=== PATIENT | female | born 1960 | race Caucasian/White ===

== ENCOUNTER 2025-03-30 16:49 | Inpatient (IN) | payer MEDICARE, OTHER ==
[~2025-03-30 16:49] MED LIST: Iopamidol-370 76% 500 ML MDV (1 ML CHARGE) ONE
[2025-03-30] MEDS ORDERED: Milk Of Magnesia 30 ML UDCUP PO PRN (18:46)
[2025-03-30] MEDS ORDERED: Mag-Al 1200 mg/1200 mg/30 ML UDCUP PO PRN (18:46)
[2025-03-30] MEDS ORDERED: Communication Order-Pharmacy FS SCH (18:46)
[2025-03-30] MEDS ORDERED: hydrALAZINE 20 MG/ML VIAL SLOW IVP PRN (18:46)
[2025-03-30] MEDS ORDERED: Bisacodyl 10 MG SUPP PR PRN (18:46)
[2025-03-30] MEDS ORDERED: niCARdipine 25 MG in Sodium Chloride 0.9% 250 ML 250 ML IVPB PRN (18:46)
[2025-03-30 18:54] LABS: Hematocrit 32.6 % (36.0-47.0); Hemoglobin 10.3 g/dL (12.0-16.0); Mean Corpuscular Hemoglobin 26.1 pg (27.0-31.0); Mean Corpuscular Volume 82.7 fL (78.0-98.0); Platelet Count 126 10x3/uL (130-400); Red Blood Cell (RBC) Count 3.94 mill/uL (4.20-5.40); Reflex for Review?? YES; White Blood Cell (WBC) Count 0.43 10x3/uL (4.8-10.8)
[2025-03-30 19:03] LABS: ALT (SGPT) 10 U/L (Less than 34); AST (SGOT) 16 U/L (11-34); Albumin 4.0 g/dL (3.1-4.5); Alkaline Phosphatase 76 U/L (40-110); Anion Gap 13 mmol/L (10-20); BUN (Urea Nitrogen) 24 mg/dL (9.8-20.1); Bilirubin, Total 1.2 mg/dL (0.3-1.2); Calc. Creatinine Clearance 0 mL/min (70-130); Calcium 9.0 mg/dL (7.8-10.44); Carbon Dioxide 23 mmol/L (23-31); Chloride 107 mmol/L (98-107); Globulin 2.6 g/dL (2.4-3.5); Glucose 107 mg/dL (80-115); Potassium 3.2 mmol/L (3.5-5.1); Sodium 140 mmol/L (136-145)
[2025-03-30 19:10] LABS: INR-International Normal Ratio 1.1; PTT 24.2 sec (22.9-36.1); Prothrombin Time 14.0 sec (12.0-14.7)
[2025-03-30 19:29] LABS: Burr Cells SLIGHT = 2-5 cells HPF (0-1); Helmet Cells SLIGHT = 2-5 cells HPF (0-1); Ovalocytes SLIGHT = 2-5 cells HPF (0-1); Platelet Adequacy Comment Platelets Decreased; Smudge Cells 5.7 %
[2025-03-30] MEDS: Magnesium 2 GM/50 ML(in water) 2 GM in Premix 1 BAG IVPB SCH (21:30)
[2025-03-30 21:45] VITALS: BMI 20.9
[2025-03-30] MEDS: Acetaminophen 325 MG TAB PO PRN (22:38)
[2025-03-30] MEDS ORDERED: Electrolyte Replacement Protocol 1 EACH FS SCH (23:03)
[2025-03-30] MEDS: Diclofenac 1% 50 GM TOPICAL GEL TP SCH (23:04)
[2025-03-30] MEDS: Mupirocin 1 GM TUBE NASAL DECOLONIZATION TP SCH (23:12)
[2025-03-31] MEDS: Famotidine/PF 20 mg/2ml Vial SLOW IVP SCH (09:16)
[2025-03-31] MEDS: Mupirocin 1 GM TUBE NASAL DECOLOIZATION TP SCH (09:16)
[2025-03-31] MEDS: Diclofenac 1% 50 GM TOPICAL GEL TP SCH (09:17)
[2025-03-31 17:19] LABS: #Basophils Less than 0.03 10x3/uL (0.0-0.2); #Eosinophils Less than 0.03 10x3/uL (0.0-0.7); #Monocytes 0.10 10x3/uL (0.11-0.59); #Neutrophils 0.21 10x3/uL (1.40-6.50); %Basophils 2.0 % (0.0-1.0); %Eosinophils 0.0 % (0.0-10.0); %Lymphocytes 37.3 % (21.0-51.0); %Monocytes 19.6 % (0.0-10.0); %Neutrophils 41.1 % (42.0-75.0); Hematocrit 31.3 % (36.0-47.0); Hemoglobin 10.1 g/dL (12.0-16.0); Mean Corpuscular Hemoglobin 26.4 pg (27.0-31.0); Mean Corpuscular Volume 81.9 fL (78.0-98.0); Platelet Count 91 10x3/uL (130-400); Red Blood Cell (RBC) Count 3.82 mill/uL (4.20-5.40); White Blood Cell (WBC) Count 0.51 10x3/uL (4.8-10.8)
[2025-03-31] MEDS: Aspirin Chewable 81 MG TAB PO SCH (17:32)
[2025-03-31 17:33] LABS: ALT (SGPT) 14 U/L (Less than 34); AST (SGOT) 15 U/L (11-34); Albumin 3.5 g/dL (3.1-4.5); Alkaline Phosphatase 66 U/L (40-110); Anion Gap 13 mmol/L (10-20); BUN (Urea Nitrogen) 20 mg/dL (9.8-20.1); Bilirubin, Total 1.0 mg/dL (0.3-1.2); Calc. Creatinine Clearance 37 mL/min (70-130); Calcium 9.1 mg/dL (7.8-10.44); Carbon Dioxide 24 mmol/L (23-31); Chloride 105 mmol/L (98-107); Globulin 3.1 g/dL (2.4-3.5); Glucose 112 mg/dL (80-115); Magnesium 2.1 mg/dL (1.6-2.6); Potassium 3.2 mmol/L (3.5-5.1); Sodium 139 mmol/L (136-145)
[2025-03-31 18:38] LABS: Ovalocytes SLIGHT = 2-5 cells HPF (0-1); Platelet Adequacy Comment Platelets Decreased; RBC Morphology Within Normal Limits; Smudge Cells 4.5 %
[2025-04-01 05:05] LABS: Anion Gap 17 mmol/L (10-20); BUN (Urea Nitrogen) 29 mg/dL (9.8-20.1); Calc. Creatinine Clearance 35 mL/min (70-130); Calcium 8.9 mg/dL (7.8-10.44); Carbon Dioxide 21 mmol/L (23-31); Cardiac Risk 2.4 (Less than 4.5); Chloride 106 mmol/L (98-107); Cholesterol 109 mg/dl (< 200 Desired); Glucose 103 mg/dL (80-115); HDL Cholesterol 46 mg/dL (>60 Neg Risk); LDL Cholesterol, Calculated 50 mg/dL; Potassium 2.9 mmol/L (3.5-5.1); Sodium 141 mmol/L (136-145); Triglycerides 66 mg/dL (Less than 150)
[2025-04-01] MEDS: Aspirin Chewable 81 MG TAB PO SCH (09:46)
[2025-04-02] MEDS: Ketorolac Tromethamine 30 MG (1 mL) VIAL IVP SCH (04:21)
[2025-04-02 04:24] LABS: Anion Gap 15 mmol/L (10-20); BUN (Urea Nitrogen) 41 mg/dL (9.8-20.1); Calc. Creatinine Clearance 30 mL/min (70-130); Calcium 9.0 mg/dL (7.8-10.44); Carbon Dioxide 18 mmol/L (23-31); Chloride 108 mmol/L (98-107); Glucose 127 mg/dL (80-115); Potassium 3.1 mmol/L (3.5-5.1); Sodium 138 mmol/L (136-145)
[2025-04-02 04:28] LABS: #Basophils Less than 0.03 10x3/uL (0.0-0.2); #Eosinophils Less than 0.03 10x3/uL (0.0-0.7); #Monocytes 0.08 10x3/uL (0.11-0.59); #Neutrophils 0.52 10x3/uL (1.40-6.50); %Basophils 2.4 % (0.0-1.0); %Eosinophils 0.0 % (0.0-10.0); %Lymphocytes 24.1 % (21.0-51.0); %Monocytes 9.6 % (0.0-10.0); %Neutrophils 62.7 % (42.0-75.0); Hematocrit 28.2 % (36.0-47.0); Hemoglobin 9.3 g/dL (12.0-16.0); Mean Corpuscular Hemoglobin 26.2 pg (27.0-31.0); Mean Corpuscular Volume 79.4 fL (78.0-98.0); Platelet Count 50 10x3/uL (130-400); Red Blood Cell (RBC) Count 3.55 mill/uL (4.20-5.40); White Blood Cell (WBC) Count 0.83 10x3/uL (4.8-10.8)
[2025-04-02] MEDS: Potassium Bicarbonate/Cit Ac 25 MEQ TAB PO SCH (05:56)
[2025-04-02 06:57] LABS: Influenza A by NAA Not Detected (NotDetected); Influenza B by NAA Not Detected (NotDetected); RSV by NAA Not Detected (NotDetected); SARS-CoV-2 NAA Rapid Test Not Detected (NotDetected)
[2025-04-02] MEDS: Pantoprazole 40 MG DR.TAB PO SCH (10:07)
[2025-04-02 12:54] LABS: Platelet Count 38 10x3/uL (130-400)
[2025-04-02 13:02] LABS: INR-International Normal Ratio 1.2; Prothrombin Time 15.8 sec (12.0-14.7)
[2025-04-02 13:03] LABS: PTT 25.5 sec (22.9-36.1)
[2025-04-02 13:06] LABS: D-Dimer Test 2.82 mcg/mL (0.27-0.43)
[2025-04-02 13:09] LABS: Fibrinogen 1030 mg/dL (253-463)
[2025-04-02 13:10] LABS: Anion Gap 13 mmol/L (10-20); BUN (Urea Nitrogen) 44 mg/dL (9.8-20.1); Calc. Creatinine Clearance 27 mL/min (70-130); Calcium 8.8 mg/dL (7.8-10.44); Carbon Dioxide 19 mmol/L (23-31); Chloride 109 mmol/L (98-107); Glucose 117 mg/dL (80-115); Magnesium 1.9 mg/dL (1.6-2.6); Potassium 3.6 mmol/L (3.5-5.1); Sodium 137 mmol/L (136-145)
[2025-04-02 13:20] LABS: Hematocrit 29.1 % (36.0-47.0); Hemoglobin 9.3 g/dL (12.0-16.0); Mean Corpuscular Hemoglobin 26.1 pg (27.0-31.0); Mean Corpuscular Volume 81.5 fL (78.0-98.0); Platelet Count 40 10x3/uL (130-400); Red Blood Cell (RBC) Count 3.57 mill/uL (4.20-5.40); White Blood Cell (WBC) Count 0.88 10x3/uL (4.8-10.8)
[2025-04-02 13:55] LABS: CAUTI Indications for Culture Immunosuppressed; Glucose, Urine (Dipstick) Normal (Negative); Leukocyte Negative Leu/uL (Negative); Protein, Urine (Dipstick) 100 mg/dL (Neg-Trace); RBC/HPF 0-3 HPF (0-3); Specific Gravity, Urine 1.017 (1.002-1.036)
[2025-04-02 14:13] LABS: Bacteria/HPF Rare-Few HPF (None Seen)
[2025-04-02 14:14] LABS: Anisocytosis SLIGHT = 6-15 cells HPF (0-5); Burr Cells MODERATE= 6-15 cells HPF (0-1); Dohle Bodies SLIGHT; Macrocytosis SLIGHT = 6-15 cells HPF (0-5); Nucleated RBC (Manual Ct) 1 % (0); Platelet Adequacy Comment Platelets Decreased; Smudge Cells 3.8 %; Toxic Granulation SLIGHT
[2025-04-02 14:14] LABS: Urine Culture Reflex Yes Yes
[2025-04-02] MEDS: Magnesium 2 GM/50 ML(in water) 2 GM in Premix 1 BAG IVPB SCH (15:53)
[2025-04-02] MEDS: Pantoprazole 40 MG VIAL IVP SCH ×2 (21:25)
[2025-04-03 04:38] LABS: Hematocrit 27.3 % (36.0-47.0); Hemoglobin 8.7 g/dL (12.0-16.0); Mean Corpuscular Hemoglobin 26.0 pg (27.0-31.0); Mean Corpuscular Volume 81.5 fL (78.0-98.0); Platelet Count 26 10x3/uL (130-400); Red Blood Cell (RBC) Count 3.35 mill/uL (4.20-5.40); White Blood Cell (WBC) Count 1.12 10x3/uL (4.8-10.8)
[2025-04-03 04:57] LABS: Anion Gap 13 mmol/L (10-20); BUN (Urea Nitrogen) 39 mg/dL (9.8-20.1); Calc. Creatinine Clearance 32 mL/min (70-130); Calcium 8.4 mg/dL (7.8-10.44); Carbon Dioxide 18 mmol/L (23-31); Chloride 111 mmol/L (98-107); Glucose 91 mg/dL (80-115); Potassium 3.4 mmol/L (3.5-5.1); Sodium 139 mmol/L (136-145)
[2025-04-03 05:10] LABS: Anisocytosis SLIGHT = 6-15 cells HPF (0-5); Nucleated RBC (Manual Ct) 2 % (0); Platelet Adequacy Comment Platelets Decreased; Polychromasia SLIGHT = 2-3 cells HPF (0-2)
[2025-04-03] MEDS: Pantoprazole 40 MG VIAL IVP SCH (09:34)
[2025-04-03] MEDS: Potassium Chloride 20 MEQ in Premix 1 BAG IVPB SCH (12:55)
[2025-04-03 15:06] VITALS: BMI 20.5
[2025-04-03 15:20] LABS: Potassium 3.8 mmol/L (3.5-5.1)
[2025-04-04] MEDS: Cyclobenzaprine 10 MG TAB PO SCH (01:46)
[2025-04-04] MEDS: Cyclobenzaprine 10 MG TAB ONE (03:07)
[2025-04-04 04:37] LABS: #Basophils Less than 0.03 10x3/uL (0.0-0.2); #Eosinophils Less than 0.03 10x3/uL (0.0-0.7); #Monocytes 0.03 10x3/uL (0.11-0.59); #Neutrophils 0.57 10x3/uL (1.40-6.50); %Basophils 1.4 % (0.0-1.0); %Eosinophils 0.7 % (0.0-10.0); %Lymphocytes 13.8 % (21.0-51.0); %Monocytes 2.1 % (0.0-10.0); %Neutrophils 39.2 % (42.0-75.0); Hematocrit 24.4 % (36.0-47.0); Hemoglobin 7.9 g/dL (12.0-16.0); Mean Corpuscular Hemoglobin 26.2 pg (27.0-31.0); Mean Corpuscular Volume 80.8 fL (78.0-98.0); Platelet Count 12 10x3/uL (130-400); Red Blood Cell (RBC) Count 3.02 mill/uL (4.20-5.40); White Blood Cell (WBC) Count 1.45 10x3/uL (4.8-10.8)
[2025-04-04 04:55] LABS: Anion Gap 10 mmol/L (10-20); BUN (Urea Nitrogen) 29 mg/dL (9.8-20.1); Calc. Creatinine Clearance 43 mL/min (70-130); Calcium 8.0 mg/dL (7.8-10.44); Carbon Dioxide 19 mmol/L (23-31); Chloride 115 mmol/L (98-107); Glucose 93 mg/dL (80-115); Potassium 3.8 mmol/L (3.5-5.1); Sodium 140 mmol/L (136-145)
[2025-04-04 12:35] VITALS: BP 121/66
[2025-04-05 10:53] LABS: Hematocrit 29.3 % (36.0-47.0); Hemoglobin 9.0 g/dL (12.0-16.0); Mean Corpuscular Hemoglobin 25.8 pg (27.0-31.0); Mean Corpuscular Volume 84.0 fL (78.0-98.0); Platelet Count 14 10x3/uL (130-400); Red Blood Cell (RBC) Count 3.49 mill/uL (4.20-5.40); White Blood Cell (WBC) Count 2.43 10x3/uL (4.8-10.8)
[2025-04-05 11:12] LABS: Anion Gap 18 mmol/L (10-20); BUN (Urea Nitrogen) 26 mg/dL (9.8-20.1); Calc. Creatinine Clearance 50 mL/min (70-130); Calcium 8.5 mg/dL (7.8-10.44); Carbon Dioxide 16 mmol/L (23-31); Chloride 111 mmol/L (98-107); Glucose 89 mg/dL (80-115); Potassium 3.6 mmol/L (3.5-5.1); Sodium 141 mmol/L (136-145)
[2025-04-05 11:26] LABS: Burr Cells MODERATE= 6-15 cells HPF (0-1); Platelet Adequacy Comment Significant Decrease; Poikilocytosis MARKED = >30 cells HPF (0-5); Polychromasia SLIGHT = 2-3 cells HPF (0-2); Schistocytes SLIGHT = 2-5 cells HPF (0-1); Smudge Cells 4.7 %; Toxic Granulation MARKED
[2025-04-05 11:34] VITALS: TEMP 98.1
== END 2025-04-05 14:59 | disposition hospice, inpatient (51) | DRG 64 ==
LOC: ERS 16:49 → ERHOLD 18:46 → CCU 21:29 → 2SE 03-31 21:02 → IMCU/EMU 04-04 14:52
PROVIDERS: ADMIT Internal Medicine; ATTEND Hospitalist
PROC: 3E03329 Introduction of Other Anti-infective into Peripheral Vein, Percutaneous Approach (ICD-10-PCS; principal; 2025-04-01)
PROC: 5A0935A Assistance with Respiratory Ventilation, Less than 24 Consecutive Hours, High Flow/Velocity Cannula (ICD-10-PCS; 2025-04-04)
DX: I63.89 Other cerebral infarction (principal); A41.52 Sepsis due to Pseudomonas; D61.810 Antineoplastic chemotherapy induced pancytopenia; J96.01 Acute respiratory failure with hypoxia; R65.20 Severe sepsis without septic shock; J15.1 Pneumonia due to Pseudomonas; Z66 Do not resuscitate; Z51.5 Encounter for palliative care; N17.9 Acute kidney failure, unspecified; G81.94 Hemiplegia, unspecified affecting left nondominant side; C79.31 Secondary malignant neoplasm of brain; C78.7 Secondary malignant neoplasm of liver and intrahepatic bile duct; C34.92 Malignant neoplasm of unspecified part of left bronchus or lung; J98.11 Atelectasis; I10 Essential (primary) hypertension; F03.90 Unspecified dementia, unspecified severity, without behavioral disturbance, psychotic disturbance, mood disturbance, and anxiety; Z88.5 Allergy status to narcotic agent; T45.1X5A Adverse effect of antineoplastic and immunosuppressive drugs, initial encounter; E83.42 Hypomagnesemia; E87.6 Hypokalemia; Z98.890 Other specified postprocedural states; Z79.82 Long term (current) use of aspirin; Z79.899 Other long term (current) drug therapy; R29.810 Facial weakness; R13.12 Dysphagia, oropharyngeal phase; Z92.82 Status post administration of tPA (rtPA) in a different facility within the last 24 hours prior to admission to current facility; Z87.891 Personal history of nicotine dependence; R29.706 NIHSS score 6; R29.714 NIHSS score 14; Z85.848 Personal history of malignant neoplasm of other parts of nervous tissue; Z85.858 Personal history of malignant neoplasm of other endocrine glands; R47.1 Dysarthria and anarthria; J98.09 Other diseases of bronchus, not elsewhere classified; N28.9 Disorder of kidney and ureter, unspecified
CPT/HCPCS: 36415; 36416; 70450; 70496; 70498; 70551; 71045; 71250; 74230; 76770; 80048; 80053; 80061; 81001; 83605; 83735; 85025; 85049; 85060; 85300; 85362; 85384; 85610; 85730; 86850; 86900; 86901; 87040; 87077; 87086; 87149; 87186; 87637; 93005; 93306; 94760; 97139; J1885; J2185; J2270; J2470; J2543; J3475; J3480; J7030; J7120; Q9967

== ENCOUNTER 2025-04-05 15:11 | Inpatient (IN) | payer OTHER ==
[2025-04-05 15:29] VITALS: BMI 23.1
[2025-04-05] MEDS ORDERED: Senokot S 8.6-50 MG TAB PO PRN (15:30)
[2025-04-05] MEDS ORDERED: diphenhydrAMINE 50 MG/ML VIAL IVP PRN (15:30)
[2025-04-05] MEDS ORDERED: Ondansetron PF 4 MG/2 ML Vial IVP PRN (15:30)
[2025-04-05] MEDS: Scopolamine 1 mg/72 hour Patch TOP PRN (15:51)
[2025-04-05] MEDS: PNEUMOC 20-VAL CONJ-DIP CRM/PF 0.5 ML SYRINGE IM ONE (21:06)
[2025-04-06 20:25] VITALS: BP 82/55; TEMP 97.9
== END 2025-04-06 19:16 | disposition expired | DRG 951 ==
LOC: IMCU/EMU 15:11 → T4-B 17:38
PROVIDERS: ADMIT Internal Medicine Nephrology; ATTEND Internal Medicine Nephrology
DX: Z51.5 Encounter for palliative care (principal); I63.9 Cerebral infarction, unspecified; D61.810 Antineoplastic chemotherapy induced pancytopenia; C34.90 Malignant neoplasm of unspecified part of unspecified bronchus or lung; R29.810 Facial weakness; Z51.11 Encounter for antineoplastic chemotherapy; T45.1X5A Adverse effect of antineoplastic and immunosuppressive drugs, initial encounter; I10 Essential (primary) hypertension
CPT/HCPCS: J2060; J2270